=== PATIENT | female | born 1985 | race Caucasian/White ===

== ENCOUNTER 2020-05-04 16:37 | Emergency (ER) | payer OTHER ==
[2020-05-04 17:14] VITALS: BP 136/78; PULSE 91; BMI 23.1
[2020-05-04 17:21] VITALS: TEMP 99.6
[2020-05-04] MEDS ORDERED: metroNIDAZOLE 250 MG TABLET PO ONE (18:39)
[2020-05-04] MEDS ORDERED: AZITHROMYCIN 500 MG TABLET PO ONE (18:39)
[2020-05-04] MEDS ORDERED: AZITHROMYCIN 500 MG TABLET ONE (18:46)
[2020-05-04 19:15] LABS: HCG,QUALITATIVE URINE Negative
[2020-05-04 19:16] LABS: EPI CELLS 17 /uL (0-25.1); HYALINE CASTS 1 /uL (0-3.1); PH,URINE 6.5 (5.0-8.0); URINE APPEARANCE CLEAR; URINE BACTERIA 424 /uL (0-1359); URINE BILIRUBIN NEGATIVE (NEGATIVE); URINE COLOR YELLOW; URINE GLUCOSE (UA) NEGATIVE (NEGATIVE); URINE KETONE NEGATIVE (NEGATIVE); URINE LEUK ESTERASE TRACE (NEGATIVE); URINE NITRITE NEGATIVE (NEGATIVE); URINE PROTEIN NEGATIVE (NEGATIVE); URINE RBC 11 /uL (0-23.9); URINE WBC 19 /uL (0-25.8)
[2020-05-04] MEDS ORDERED: metroNIDAZOLE 250 MG TABLET ONE ×3 (19:34→19:41)
== END 2020-05-04 20:06 | disposition home or self-care (01) ==
LOC: JER 16:37
DX: N72 Inflammatory disease of cervix uteri (principal)
CPT/HCPCS: 36415; 81003; 84703; 87086; 87491; 87591; 99284-25